=== PATIENT | female | born 2000 | race Native Hawaiian/Other Pacific Islander ===

== ENCOUNTER 2024-10-28 23:59 | Inpatient (IN) ==
[2024-10-29] MEDS: SODIUM CHLORIDE 0.9% 1,000 ML IV ONE (00:46)
[2024-10-29] MEDS: KETOROLAC TROMETHAMINE 15 MG/ML VIAL IV STA ×2 (00:52→05:56)
[2024-10-29 00:59] LABS: Basophils # (auto) 0.04 K/uL (0.00-0.20); Basophils % (auto) 0.3 %; Eosinophils # (auto) 0.02 K/uL (0.00-0.50); Eosinophils % (auto) 0.1 %; Hematocrit (blood only) 33.7 % (37.0-47.0); Hemoglobin 11.4 g/dl (12.0-16.0); Immature Granulocytes # (auto) 0.04 K/uL (0.01-0.20); Immature Granulocytes % (auto) 0.3 %; Lymphocytes # (auto) 1.05 K/uL (1.20-3.40); Lymphocytes % (auto) 7.5 %; Mean Corpuscular Hemoglobin 29.2 pg (25.0-34.0); Mean Corpuscular Hgb Conc 33.8 g/dL (32.0-36.0); Mean Corpuscular Volume 86.2 fL (80.0-100.0); Mean Platelet Volume 10.5 fL (9.4-12.4); Monocytes # (auto) 0.82 K/uL (0.11-0.59); Monocytes % (auto) 5.9 %; Neutrophils # (auto) 12.01 K/uL (1.40-6.50); Neutrophils % (auto) 85.9 %; Platelet Count 274 K/uL (130-400); RDW Coefficient of Variation 12.7 % (11.5-14.5); RDW Standard Deviation 39.8 fL (36.4-46.3); Red Blood Count 3.91 M/uL (4.20-5.40); White Blood Count 13.98 K/ul (4.8-10.8)
--- NOTE | 2024-10-29 01:07 | Emergency Department Note ---
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 She was placed on antibiotics. The drain fell out. Pain got worse and patient returned. Patient states she feels dehydrated and has not been eating or drinking secondary to the pain. Patient denies abdominal pain, fevers, vomiting. Home Medications Medication Instructions Recorded Confirmed Type metronidazole 500 mg tablet 500 mg PO Q8H 7 days #21 tabs 10/28/24 Rx sulfamethoxazole 800 1 tab PO BID 7 days #14 tabs 10/28/24 Rx mg-trimethoprim 160 mg tablet (Bactrim DS) Allergies Allergy/AdvReac Type Severity Reaction Status Date / Time acetaminophen [From Tylenol] Allergy Swelling Verified 10/29/24 05:59 of Lip/Tongue/Throat Past Med/Surg History Problem List (Updated 10/29/24 @ 06:21 by Vanessa Calvillo PA-C) Bartholin's gland abscess (Acute) Bartholin's duct cyst (Acute) Social History Smoking Status: Never smoker Preferred Language: Armenian Feels Safe at Home: Yes Review of Systems A total of 10 systems reviewed and were otherwise negative Physical Exam Vital Signs Vital Signs - 24 hr 10/29/24 00:04 10/29/24 00:44 10/29/24 00:48 Temperature 36.6 C Temperature Source Temporal Artery Scan Pulse Rate 95 H Pulse Rate [Apical] Pulse Rate [Finger] 82 Respiratory Rate 19 20 Respiratory Effort / Characteristics Non-Labored Spontaneous Respiratory Depth Normal Respiratory Pattern Blood Pressure 79/50 L Blood Pressure [Left Arm] 87/60 L Blood Pressure Mean 59 Blood Pressure Mean [Left Arm] 69 Blood Pressure Position [Left Arm] Semi-fowlers Pulse Oximetry 98 100 96 Oxygen Delivery Method Room Air Room Air Room Air Sepsis Recent Fever Within 48 Hours No Sepsis New/Unexplained Change in Mental Status N/A Sepsis Action Taken by Nursing No Action Required 10/29/24 01:01 10/29/24 01:51 10/29/24 04:00 Temperature Temperature Source Pulse Rate 79 Pulse Rate [Apical] Pulse Rate [Finger] 88 73 Respiratory Rate 18 16 Respiratory Effort / Characteristics Respiratory Depth Respiratory Pattern Blood Pressure Blood Pressure [Left Arm] 107/71 116/84 Blood Pressure Mean Blood Pressure Mean [Left Arm] 83 94 Blood Pressure Position [Left Arm] Semi-fowlers Pulse Oximetry 98 100 Oxygen Delivery Method Room Air Room Air Sepsis Recent Fever Within 48 Hours Sepsis New/Unexplained Change in Mental Status Sepsis Action Taken by Nursing 10/29/24 04:54 10/29/24 06:00 Temperature Temperature Source Pulse Rate 72 Pulse Rate [Apical] 74 Pulse Rate [Finger] Respiratory Rate 14 Respiratory Effort / Characteristics Non-Labored Spontaneous Respiratory Depth Normal Respiratory Pattern Regular Blood Pressure Blood Pressure [Left Arm] 98/60 L Blood Pressure Mean Blood Pressure Mean [Left Arm] 72 Blood Pressure Position [Left Arm] Semi-fowlers Pulse Oximetry 100 Oxygen Delivery Method Room Air Sepsis Recent Fever Within 48 Hours Sepsis New/Unexplained Change in Mental Status Sepsis Action Taken by Nursing VITALS: Vitals are noted on the nurse's note and reviewed by myself. Vital signs stable. GENERAL: Pleasant patient, in no acute distress, nondiaphoretic, well-developed well-nourished. SKIN: Capillary reflex less than 2 seconds. HEENT: Normocephalic. PERRLA. EOMI. Nares patent. Mucous membranes moist. Neck is supple without nuchal rigidity. HEART: Regular rate and rhythm LUNGS: Clear to auscultation bilaterally without wheezes, rales or rhonchi. No retractions or accessory muscle use. ABDOMEN: Positive bowel sounds x 4. Normal tympanic percussion. Soft, nontender, without masses or organomegaly. Abbott sign negative. No guarding or rebound tenderness. no CVA tenderness exam: Normal external genitalia, right Bartholin glands area with open wound with minimal bleeding, no palpable abscess. No Word catheter present. No rash. Left side of genitalia normal. Fermentation Operator of nurse Janay present. MUSCULOSKELETAL: No gross musculoskeletal defects. NEURO: Patient was alert and oriented to person place and time. No focal neurological deficits. Course Administered Medications Discontinued Medications Sodium Chloride (Nss) 1,000 mls @ 999 mls/hr IV .Q1H1M ONE Stop: 10/29/24 01:42 Last Infusion: 10/29/24 01:53 Dose: Infused Documented By: Admin: 10/29/24 00:46 Dose: 999 mls/hr Documented By: BOBBI Ceftriaxone Sodium (Rocephin) 1,000 mg in 50 mls @ 100 mls/hr IV NOW STA Stop: 10/29/24 01:34 Last Infusion: 10/29/24 02:59 Dose: Infused Documented By: Admin: 10/29/24 02:12 Dose: 100 mls/hr Documented By: BOBBI Ioversol (Optiray 320 100ml) 94 ml IV ONCE ONE Stop: 10/29/24 02:07 Last Admin: 10/29/24 02:06 Dose: 94 ml Documented By: PRISCILA Ketorolac Tromethamine (Ketorolac Tromethamine 15 Mg/Ml Vial) 10 mg IV NOW STA Stop: 10/29/24 00:43 Last Admin: 10/29/24 00:52 Dose: 10 mg Documented By: BOBBI Ketorolac Tromethamine (Ketorolac Tromethamine 15 Mg/Ml Vial) 10 mg IV NOW STA Stop: 10/29/24 05:46 Last Admin: 10/29/24 05:56 Dose: 10 mg Documented By: BOBBI Lorazepam (Lorazepam 2 Mg/1 Ml Vial) 0.5 mg IV NOW STA Stop: 10/29/24 03:55 Last Admin: 10/29/24 04:23 Dose: 0.5 mg Documented By: BOBBI Medical Decision Making Medical Records Attestation: I reviewed the patient's medical records. Home Medications Current Medication List: was personally reviewed by me Laboratory Data Attestation: I reviewed the patient's lab results. 10/29/24 00:47 10/29/24 00:47 Lab Results 10/29/24 10/29/24 Range/Units 00:47 03:08 WBC 13.98 H (4.8-10.8) K/ul RBC 3.91 L (4.20-5.40) M/uL Hgb 11.4 L (12.0-16.0) g/dl Hct 33.7 L (37.0-47.0) % MCV 86.2 (80.0-100.0) fL MCH 29.2 (25.0-34.0) pg MCHC 33.8 (32.0-36.0) g/dL RDW Std Deviation 39.8 (36.4-46.3) fL RDW Coeff of Jay 12.7 (11.5-14.5) % Plt Count 274 (130-400) K/uL MPV 10.5 (9.4-12.4) fL Immature Gran % (Auto) 0.3 % Neut % (Auto) 85.9 % Lymph % (Auto) 7.5 % [place] % (Auto) 5.9 % Eos % (Auto) 0.1 % Baso % (Auto) 0.3 % Neut # (Auto) 12.01 H (1.40-6.50) K/uL Lymph # (Auto) 1.05 L (1.20-3.40) K/uL Trinity # (Auto) 0.82 H (0.11-0.59) K/uL Eos # (Auto) 0.02 (0.00-0.50) K/uL Baso # (Auto) 0.04 (0.00-0.20) K/uL Immature Gran # (Auto) 0.04 (0.01-0.20) K/uL Sodium 136 (136-145) mmol/L Potassium 3.4 L (3.5-5.1) mmol/L Chloride 105 (98-107) mmol/L Carbon Dioxide 23 (21-32) mmol/L Anion Gap 8 (3-11) BUN 8 (6-23) mg/dl Creatinine 0.63 (0.6-1.2) mg/dl Est Cr Clr Drug Dosing 133.8 ml/min eGFR 128.55 BUN/Creatinine Ratio 12.7 (10-20) Glucose 121 H (70-99(Fasting)) mg/dl Calcium 9.1 (8.6-10.3) mg/dl Total Bilirubin 0.4 (0.2-1.0) mg/dl AST 15 (13-39) U/L ALT 11 (7-52) U/L Alkaline Phosphatase 50 (34-104) U/L Total Protein 8.0 (6.0-8.3) gm/dl Albumin 4.1 (3.4-5.0) gm/dl Globulin 3.9 (2.5-4.0) gm/dl Albumin/Globulin Ratio 1.1 (0.9-2) HCG, Qual Negative (Negative) Urine Color Yellow Urine Appearance Clear (Clear) Urine pH 6.5 (4.5-7.5) Ur Specific [place] 1.027 (1.000-1.030) Urine Protein Negative (Negative) Urine Glucose (UA) Negative (Negative) Urine Ketones 1+ H (Negative) Urine Blood 3+ H (Negative) Urine Nitrite Negative (Negative) Urine Bilirubin Negative (Negative) Urine Urobilinogen Negative (Negative) Ur Leukocyte Esterase Trace H (Negative) Urine WBC (Auto) 0-5 (0-5) /hpf Urine RBC (Auto) >20 H (0-2) /hpf U Hyaline Cast (Auto) 0-2 (0-2) /lpf U Epithel Cells (Auto) 0-2 (0-2) /hpf Urine Bacteria (Auto) 1+ H (None Seen) Imaging Data Attestation: I personally reviewed and interpreted this imaging study as follows: Radiologist's Impression: Abdomen/Pelvis CT 10/29/24 00:43 EXAM: CT abd pelvis IV con only CLINICAL HISTORY: Bartholin abscess drained, severe R groin pn TECHNIQUE: Multiple contiguous axial images were obtained from the level of diaphragm to the pubis symphysis. This study was acquired after the IV administration of iodinated contrast material, given the patients indications for the examination. If IV contrast material had not been administered, the likelihood of detecting abnormalities relevant to the patients condition would have been substantially decreased. Coronal and sagittal reformatted images were generated and reviewed to improve anatomic localization and optimize lesion detection. CT scan was performed according to ALARA (as low as reasonable achievable). COMPARISON: . None FINDINGS: The visualized lung bases are clear. ABDOMEN/PELVIS: The liver is normal in size and attenuation. No focal liver lesions are seen. There is no intra or extrahepatic biliary ductal dilatation. Hepatic vasculature is patent. The gallbladder is unremarkable. The spleen, pancreas, and adrenal glands are unremarkable. The kidneys are normal in size and attenuation. There is no hydronephrosis or perinephric fat stranding. No renal calculi or renal masses are identified. The ureters are normal in caliber and no ureteral calculi are seen. The bladder is normal in contour. No evidence of focal or diffuse bowel wall thickening or evidence of bowel obstruction is seen. The appendix is visualized in the right lower quadrant and appears within normal limits. No adenopathy or fluid collections are seen. The aorta is normal in caliber. No aggressive appearing osseous lesions are identified. Residual abcess 4.0x3.4 x 2.5 cm noted in the perineum in the right paramedian aspect. IMPRESSION: Residual bartholin abscess. Electronically signed by Jorge Lo 10-29-2024 03:25 AM MDM Narrative Prior records reviewed and summarized as above. Triage Nursing notes reviewed. Additional history obtained from nursing. The patient's history was concerning for pain to the right groin area who had I&D of the Bartholin's duct earlier today Differential diagnosis: Etiologies such as postprocedure complication, healing process, cellulitis, abscess, MRSA infection, DVT, necrotizing fasciitis, dermatitis, drug eruption, as well as others were entertained.. Physical examination: As above ER treatment provided: Toradol, IV fluids, Rocephin, Ativan On reassessment the patient felt better. Diagnostics interpreted by me: The labs Independently Interpreted by myself revealed mild leukocytosis, negative hCG Wound culture from earlier today was reviewed Imaging studies: Imaging was reviewed and read by radiology Consultation: A consultation was placed with the [employer], Dr. Juan. The case was discussed and diagnostics were reviewed. The patient was evaluated in the ER for further treatment. This appears to be Bartholin's abscess. Patient is unable to tolerate local I&D. OB was consulted and will evaluate the patient. Patient refused bedside I&D by [employer]. Patient like to be admitted for IV antibiotics. Patient was admitted to the [employer] service. By the evaluation outlined above emergent etiologies such as necrotizing fasciitis, as well as others were deemed relatively unlikely. The pt informed about the findings as listed above. All questions were answered and pleased with the treatment. The chart was completed utilizing [employer] Speech voice recognition software. Grammatical errors, random word insertions, pronoun errors, and incomplete sentences are an occassional consequence of this system due to software limitations, ambient noise, and hardware issues. Any formal questions or concerns about the content, text, or information contained within the body of this dictation should be directly addressed to the physician shop assistant for clarification. Impression & Plan Bartholin's gland abscess Discharge Plan Visit Data Chief Complaint: Vaginal Pain Stated Complaint: BLEEDING CYST ED Provider: Tatiana Smith ED Midlevel Provider: Vanessa Calvillo Discharge Problem: Bartholin's gland abscess Patient Disposition: Admitted As Inpatient Condition: Good Forms Stand Alone Forms: [facility] Prescriptions Prescriptions: No Action sulfamethoxazole-trimethoprim [Bactrim DS] 800-160 mg tablet 1 tab PO BID 7 Days Qty: 14 0RF metronidazole 500 mg tablet 500 mg PO Q8H 7 Days Qty: 21 0RF Referrals [facility]: [facility] [Primary Care Provider] -
[2024-10-29 01:08] LABS: Pregnancy Test, Serum Negative (Negative)
[2024-10-29 01:17] LABS: Albumin Globulin Ratio 1.1 (0.9-2); Albumin Level 4.1 gm/dl (3.4-5.0); BUN Creatinine Ratio 12.7 (10-20); Bilirubin,Total 0.4 mg/dl (0.2-1.0); Calcium 9.1 mg/dl (8.6-10.3); Creatinine Clr Calc Pharmacy 133.8 ml/min; Globulin 3.9 gm/dl (2.5-4.0); Potassium 3.4 mmol/L (3.5-5.1)
[2024-10-29] MEDS: OPTIRAY 320 100ml IV ONE (02:06)
[2024-10-29] MEDS: cefTRIAXone SODIUM 1,000 MG/50 ML BAG IV STA (02:12)
[2024-10-29 03:22] LABS: Appearance Urine Clear (Clear); Bacteria Urine Automated 1+ (None Seen); Bilirubin Urine Negative (Negative); Blood Urine 3+ (Negative); Cast Urine Automated 0-2 /lpf (0-2); Color Urine Yellow; Epithelial Cell Urine Auto 0-2 /hpf (0-2); Glucose Urine UA Negative (Negative); Ketones Urine 1+ (Negative); Leukocyte Esterase Urine Trace (Negative); Nitrite Urine Negative (Negative); Protein Urine Negative (Negative); RBC Urine Automated >20 /hpf (0-2); Specific Gravity Urine 1.027 (1.000-1.030); Urobilinogen Urine Negative (Negative); WBC Urine Automated 0-5 /hpf (0-5); pH Urine 6.5 (4.5-7.5)
--- NOTE | 2024-10-29 03:26 | CT Scan Report ---
EXAM: CT abd pelvis IV con only CLINICAL HISTORY: Bartholin abscess drained, severe R groin pn TECHNIQUE: Multiple contiguous axial images were obtained from the level of diaphragm to the pubis symphysis. This study was acquired after the IV administration of iodinated contrast material, given the patients indications for the examination. If IV contrast material had not been administered, the likelihood of detecting abnormalities relevant to the patients condition would have been substantially decreased. Coronal and sagittal reformatted images were generated and reviewed to improve anatomic localization and optimize lesion detection. CT scan was performed according to ALARA (as low as reasonable achievable). COMPARISON: . None FINDINGS: The visualized lung bases are clear. ABDOMEN/PELVIS: The liver is normal in size and attenuation. No focal liver lesions are seen. There is no intra or extrahepatic biliary ductal dilatation. Hepatic vasculature is patent. The gallbladder is unremarkable. The spleen, pancreas, and adrenal glands are unremarkable. The kidneys are normal in size and attenuation. There is no hydronephrosis or perinephric fat stranding. No renal calculi or renal masses are identified. The ureters are normal in caliber and no ureteral calculi are seen. The bladder is normal in contour. No evidence of focal or diffuse bowel wall thickening or evidence of bowel obstruction is seen. The appendix is visualized in the right lower quadrant and appears within normal limits. No adenopathy or fluid collections are seen. The aorta is normal in caliber. No aggressive appearing osseous lesions are identified. Residual abcess 4.0x3.4 x 2.5 cm noted in the perineum in the right paramedian aspect. IMPRESSION: Residual bartholin abscess. Electronically signed by Jorge Lo 10-29-2024 03:25 AM
[2024-10-29] MEDS: LORazepam 2 MG/1 ML VIAL IV STA (04:23)
--- NOTE | 2024-10-29 06:35 | History & Physical Report ---
Date of Service October 29, 2024 Assessment & Plan (1) Bartholin's gland abscess: Plan: Patient is offered to have the abscess redrained and a Word catheter placed and not sure the initial catheter was able to penetrate the abscess cavity patient is declining this option as she found it fairly traumatic. I discussed my experience with this but she still declines has eaten relatively recently we will start on IV antibiotics she is already received ceftriaxone dosing for that is 24 hours so we will see how she does today before second dose but I will start IV metronidazole if she does not improve she may require incision and drainage and/or marsupialization in the operating room as her pain tolerance is somewhat lower at this time. 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 history of a Bartholin's gland abscess it was presented to yesterday morning in the ER attempted placement of a Word catheter was done but there was not significant drainage this was done by the emergency room provider she came back because her pain was worse she is not feverish although has a slight elevated white count her pain was so significant that she required pain medication and Ativan in the ER while she was being assessed by the ER I was contacted however the delivery census on labor and delivery was high and I was able to come down initially patient reports she is now feeling somewhat better Allergies Allergy/AdvReac Type Severity Reaction Status Date / Time acetaminophen [From Tylenol] Allergy Swelling Verified 10/29/24 05:59 of Lip/Tongue/Throat Home Medications Medication Instructions Recorded Confirmed Type metronidazole 500 mg tablet 500 mg PO Q8H 7 days #21 tabs 10/28/24 10/29/24 Rx sulfamethoxazole 800 1 tab PO BID 7 days #14 tabs 10/28/24 10/29/24 Rx mg-trimethoprim 160 mg tablet (Bactrim DS) Patient History Social History Smoking Status: Never smoker Preferred Language: Czech Feels Safe at Home: Yes Physical Exam Constitutional: WD/WN, vitals as above well developed and well nourished Respiratory: normal respiratory effort, lungs clear to auscultation normal respiratory effort Cardiovascular: RRR, no murmur, no edema Gastrointestinal (Abdomen): normal bowel sounds, soft, nontender, no hepatosplenomegaly Genitourinary: Examination done with Ree Calvillo present there is a right sided Bartholin's gland fullness consistent with a CT scan of 4 cm it does not look like it has been drained tender to palpation but I am able to palpate a Results & Data Vital Signs (Past 12 Hours) Vital Signs Temp Pulse Pulse Pulse Resp BP BP 10/29/24 06:00 74 14 98/60 L 10/29/24 04:54 72 10/29/24 04:00 73 16 116/84 10/29/24 01:51 88 18 107/71 10/29/24 01:01 79 10/29/24 00:48 10/29/24 00:44 82 20 87/60 L 10/29/24 00:04 97.9 F 95 H 19 79/50 L Pulse Ox O2 Del Method 10/29/24 06:00 100 Room Air 10/29/24 04:54 10/29/24 04:00 100 Room Air 10/29/24 01:51 98 Room Air 10/29/24 01:01 10/29/24 00:48 96 Room Air 10/29/24 00:44 100 Room Air 10/29/24 00:04 98 Room Air Coding Level of Care Code 34264 INT INP/OBS CARE MIN Diagnoses Bartholin's gland abscess N75.1
[2024-10-29] MEDS ORDERED: KETOROLAC TROMETHAMINE 15 MG/ML VIAL IV PRN (07:11)
[2024-10-29] MEDS: oxyCODONE HCL IR 5 MG TAB (IMMEDIATE RELEASE) PO PRN (08:14)
[2024-10-29] MEDS ORDERED: ONDANSETRON INJ 2 MG/ML 2 ML VIAL IV PRN (09:15)
[2024-10-29] MEDS ORDERED: ACETAMINOPHEN 325 MG TAB PO PRN (09:15)
[2024-10-29] MEDS ORDERED: LORazepam 0.5 MG TAB PO PRN (09:15)
[2024-10-29] MEDS: metroNIDAZOLE 500 MG/100 ML BAG IV SCH (10:08)
--- NOTE | 2024-10-29 10:42 | Gynecologic Progress Note ---
Date of Service October 29, 2024 Assessment & Plan (1) Bartholin's gland abscess: Plan: On my exam, R inf labia does not appear swollen anymore, there is residual 2cm area of fullness but is primarily perineal, not in the labia/vagina. Can feel the top of the fullness from the vagina but it does not go into it. Bloody discharge can be illicited from it. Pt does note that the current size is smaller than what it was when she first presented and came back to the ER -With residual location and current size, I don't think this is amenable to word catheter placement. There is drainage in her underwear so I think it has been slowly draining over time. With this, will plan to continue IV antibiotics, rec warm compresses/sitz baths and pain control and re-eval. Will continue to monitor closely Admission and Anticipated Discharge Date Admission Date: October 29, 2024 Subjective Pt told nursing she was agreeable for intervention after arriving to floor Physical Exam Genitourinary: Exam demonstrates a 2cm fullness in R perineum, not involving the right labia/vagina, moderately tender to palpation but draining small amount of bloody fluid Gentle digital exam at introitus does not demonstrate involvement of the right labia or vagina, the fullness is inferior to this Results & Data Vital Signs (Past 12 Hours) Vital Signs Temp Pulse Pulse Pulse Resp BP BP 10/29/24 08:30 66 20 106/67 10/29/24 06:30 98.2 F 81 18 127/77 10/29/24 06:00 74 14 98/60 L 10/29/24 04:54 72 10/29/24 04:00 73 16 116/84 10/29/24 01:51 88 18 107/71 10/29/24 01:01 79 10/29/24 00:48 10/29/24 00:44 82 20 87/60 L 10/29/24 00:04 97.9 F 95 H 19 79/50 L Pulse Ox O2 Del Method 10/29/24 08:30 98 10/29/24 06:30 100 Room Air 10/29/24 06:00 100 Room Air 10/29/24 04:54 10/29/24 04:00 100 Room Air 10/29/24 01:51 98 Room Air 10/29/24 01:01 10/29/24 00:48 96 Room Air 10/29/24 00:44 100 Room Air 10/29/24 00:04 98 Room Air PG Care Time/CCT Total # of Minutes Spent Total Time Spent with Patient: Total time spent is greater than 50% in coordination of care (as documented) at patient's floor/unit and/or counseling patient: Coding Level of Care Code None Diagnoses Bartholin's gland abscess N75.1
[2024-10-29] MEDS: oxyCODONE HCL IR 5 MG TAB (IMMEDIATE RELEASE) PO SCH (10:49)
[2024-10-29] MEDS: BENZOCAINE 20% SPRY 85 APPLN/85 GM CAN EXT PRN (10:54)
[2024-10-29] MEDS: LACTATED RINGER'S 1,000 ML IV SCH (11:08)
[2024-10-29] MEDS: KETOROLAC TROMETHAMINE 15 MG/ML VIAL IV SCH (12:28)
[2024-10-29 16:46] VITALS: RESP 18
[2024-10-29] MEDS: LIDOCAINE 1% MPF 5 ML VIAL ONE (18:40)
--- NOTE | 2024-10-29 19:22 | Procedure Note ---
Procedure Note Date of Service October 29, 2024 Pt re-evaluated, cyst is improved. Pain worsening a little bit but drainage seems to have slowed as well. On exam, perineum looks less erythematous and slightly less tender but the prior incision is no longer open. Lateral aspect of the cyst is the most tender area but no skin slubber frame changer it. On gentle palpation at introitus top of cyst can be palpated there. Discussed repeat I&D and word cath placement as can place it at top of cyst/inferior aspect of intr oitus and pt agreeable. Verbal consent obtained Area cleaned x 3 with betadine 3cc of 1% lidocaine w/o epinephrine injected into skin stab incision made with 11 blade and cyst contents drained word catheter inserted and filled with 2.5cc saline and catheter tucked into vagina Pt tolerated well Coding Additional Codes Date of Service (PG.SURGERY) Other - 03598 Arnie Cyst I&D: 35001 Arnie Cyst I&D ([id number]) BLIND EYELETTER Other Procedure Codes Other 29502 Arnie Cyst I&D (word cath placement)
[2024-10-30] MEDS: cefTRIAXone SODIUM 1,000 MG/50 ML BAG IV SCH (02:51)
--- NOTE | 2024-10-30 08:17 | Gynecologic Progress Note ---
Date of Service October 30, 2024 Assessment & Plan (1) Bartholin's duct cyst: Plan: -will have pt f/u in office on , is allergic to tylenol so will continue motrin and I will send rx for oxycodone with take home pack today as she uses [facility] -continue bactrim as ordered by ER Admission and Anticipated Discharge Date Admission Date: October 29, 2024 Subjective Feeling better overall than yesterday, word catheter in place. Mostly has discomfort at the incision site now, not the cyst. Period also began last night which is a bit uncomfortable Physical Exam Genitourinary: Cyst appears decreased in size, less tender. Word cath in place, flipped out of vagina at pt request Results & Data Vital Signs (Past 12 Hours) Vital Signs Temp Pulse Resp BP Pulse Ox O2 Del Method 10/30/24 03:00 98.2 F 83 18 95/59 L 100 Room Air 10/30/24 00:15 99.7 F H 84 18 90/51 L 99 Room Air PG Care Time/CCT Total # of Minutes Spent Total Time Spent with Patient: Total time spent is greater than 50% in coordination of care (as documented) at patient's floor/unit and/or counseling patient: Coding Level of Care Code None Diagnoses Bartholin's duct cyst N75.0
[2024-10-30 09:20] VITALS: BP 109/70; PULSE 88; TEMP 99.1; O2SAT 99
[2024-10-30] MEDS: oxyCODONE IR HOME PACK PO ONE (09:30)
== END 2024-10-30 10:00 | disposition home or self-care (01) | DRG 747 ==
LOC: ED 23:59 → 4E1 10-29 06:26